=== PATIENT | male | born 1965 | race Two or more races ===

== ENCOUNTER 2018-08-27 12:22 | Emergency (ER) | payer SELFPAY ==
--- NOTE | 2018-08-27 13:04 | ED ---
Lower Extremity - HPI Summary HPI Summary: A 53 y/o male presents to [facility] with a chief complaint of right heel pain for 6 months. At triage he rated his pain as a 2/10 in severity. He reports that he is active, playing squash and taekwJammcardo. He thinks that his pain was due to an injury during activity. He tried to not be active for 3 months, but that has not helped. He reports that one month ago his lab results showed high uric acid. He reports that he was given Zylorec for 10 days one month ago in [place]. He went to a physical therapist, but that has not alleviated his pain. He reports that walking aggravates his pain. He denies leg swelling or any other pain. - History of Current Complaint Chief Complaint: EDExtremityLower Stated Complaint: RIGHT HEEL PAIN PER PT Time Seen by Provider: 08/27/18 12:54 Hx Obtained From: Patient Mechanism Of Injury: Unknown Onset of Pain: Immediate, Days, Prior to Arrival Onset/Duration: Still Present Pain Intensity: 2 Pain Scale Used: 0-10 Numeric Timing: Constant, Lasting Weeks Location: Is Diffuse - right heel Character Of Pain: Unable To Describe Associated Signs And Symptoms: Negative: Swelling, Fever Aggravating Factor(s): Movement Alleviating Factor(s): Nothing - Allergies/Home Medications Allergies/Adverse Reactions: Allergies Allergy/AdvReac Type Severity Reaction Status Date / Time gluten Allergy GI Upset Verified 08/27/18 12:25 PMH/Surg Hx/FS Hx/Imm Hx Endocrine/Hematology History: Denies: Hx Diabetes, Hx Thyroid Disease Cardiovascular History: Reports: Hx Hypertension - on meds Respiratory History: Denies: Hx Asthma, Hx Chronic Obstructive Pulmonary Disease (COPD) GI History: Denies: Hx Ulcer - Surgical History Surgery Procedure, Year, and Place: 1985-fistula repair, 1995 vericoseal, wisdom teeth extraction Infectious Disease History: No Infectious Disease History: Reports: Traveled Outside the [place] in Last 30 Days Denies: Hx Clostridium Difficile, Hx Hepatitis, Hx Human Immunodeficiency Virus (HIV) - Family History Known Family History: Negative: Blood Disorder - Social History Alcohol Use: None Substance Use Type: Reports: None Smoking Status (MU): Never Smoked Tobacco Review of Systems Negative: Fever Positive: Other - positive: right heel pain. Negative: Edema All Other Systems Reviewed And Are Negative: Yes Physical Exam - Summary Physical Exam Summary: Constitutional: Well-developed, Well-nourished, Alert. (-) Distressed Skin: Warm, Dry HENT: Normocephalic; Atraumatic Eyes: Conjunctiva normal Neck: Musculoskeletal ROM normal neck. (-) JVD, (-) Stridor, (-) Tracheal deviation Cardio: Rhythm regular, rate normal, Heart sounds normal; Intact distal pulses; The pedal pulses are 2+ and symmetric. Radial pulses are 2+ and symmetric. (-) Murmur Pulmonary/Chest wall: Effort normal. (-) Respiratory distress, (-) Wheezes, (-) Rales Abd: Soft, (-) tenderness, (-) Distension, (-) Guarding, (-) Rebound Musculoskeletal: TTP inferior heel, no achilles tenderness, Good ROM, neurovascularly intact, Good capillary refill, (-) Edema Lymph: (-) Cervical adenopathy Neuro: Alert, Oriented x3 Psych: Mood and affect Normal Triage Information Reviewed: Yes Vital Signs On Initial Exam: Initial Vitals Temp Pulse Resp BP Pulse Ox 98 F 82 12 125/89 96 08/27/18 12:24 08/27/18 12:24 08/27/18 12:24 08/27/18 12:24 08/27/18 12:24 Vital Signs Reviewed: Yes Diagnostics - Vital Signs Vital Signs Temp Pulse Resp BP Pulse Ox 08/27/18 12:24 98 F 82 12 125/89 96 - Laboratory Lab Statement: Any lab studies that have been ordered have been reviewed, and results considered in the medical decision making process. - Radiology Foot x-ray Radiology Interpretation Completed By: Radiologist Summary of Radiographic Findings: NO ACUTE OSSEOUS INJURY. IF SYMPTOMS PERSIST, RECOMMEND REPEAT IMAGING. ED physician has reviewed this imaging report. Re-Evaluation - Re-Evaluation First Eval Re-Evaluation Time: 14:03 Change: Unchanged Comment: Discussed results and plan for discharge and follow up. Lower Extremity Course/Dx - Course Course Of Treatment: A 53 y/o male presents to [facility] with a chief complaint of right heel pain for 6 months. He reports that he is active, playing squash and taekwJammcardo and thinks that his pain was due to an injury during activity. He tried to not be active for 3 months, but that has not helped. He reports that one month ago his lab results showed high uric acid. He reports that he was given Zylorec for 10 days one month ago in [place].The physical exam revealed TTP inferior heel, no achilles tenderness, Good ROM, neurovascularly intact, Good capillary refill. Foot x-ray impression: NO ACUTE OSSEOUS INJURY. IF SYMPTOMS PERSIST, RECOMMEND REPEAT IMAGING. The patient will be discharged and follow up with micheal Fink. The patient is agreeable with this plan. - Diagnoses Provider Diagnoses: Heel pain Discharge - Sign-Out/Discharge Documenting (check all that apply): Patient Departure - DC Patient Received Moderate/Deep Sedation with Procedure: No - Discharge Plan Condition: Good Disposition: HOME Patient Education Materials: Gout (ED), Arthralgia (ED) Print Language: BURUNDI[place] Referrals: No Primary Care PhysNOPCP [Primary Care Provider] - Lee Ann Poe MD [Medical Doctor] - - Billing Disposition and Condition Condition: GOOD Disposition: Home - Attestation Statements Document Initiated by Scribe: Yes Documenting Scribe: Rajesh George Provider For Whom Maite is Documenting (Include Credential): Imelda Jacques MD Scribe Attestation: I, Rajesh George, scribed for Imelda Jacques MD on 08/27/18 at 2114. Scribe Documentation Reviewed: Yes Provider Attestation: The documentation as recorded by the Rajesh gamble accurately reflects the service I personally performed and the decisions made by me, Imelda Jacques MD Status of Scribe Document: Viewed
[2018-08-27 14:20] VITALS: BP 136/86
== END 2018-08-27 14:19 | disposition home or self-care (01) ==
LOC: ED 12:22
DX: M79.671 Pain in right foot (principal); I10 Essential (primary) hypertension; Z79.899 Other long term (current) drug therapy
CPT/HCPCS: 99281